=== PATIENT | male | born 1965 | race Asian ===

== ENCOUNTER 2019-12-27 19:17 | Emergency (ER) | payer OTHER ==
[~2019-12-27] VITALS: Ht 172.7 cm; Wt 77.1 kg
[2019-12-27 19:21] VITALS: Ht 172.7 cm; Wt 77.1 kg
[2019-12-27 21:42] VITALS: BP 134/80
== END 2019-12-27 21:42 | disposition home or self-care (01) ==
LOC: ED 19:17
DX: S46.911A Strain of unspecified muscle, fascia and tendon at shoulder and upper arm level, right arm, initial encounter (principal); M79.631 Pain in right forearm; W19.XXXA Unspecified fall, initial encounter; Y93.89 Activity, other specified; Y92.89 Other specified places as the place of occurrence of the external cause; Y99.8 Other external cause status
CPT/HCPCS: J1885; J2405; J3010; Q0092